=== PATIENT | female | born 1990 | race Caucasian/White ===

== ENCOUNTER 2017-09-24 17:13 | Emergency (ER) | payer BC, MEDICAID ==
[~2017-09-24] VITALS: Ht 170.2 cm; Wt 180.0 kg
[~2017-09-24 17:13] MED LIST: MEDR2.5T PO; ONDA8TAB9 PO
[2017-09-24] MEDS ORDERED: acetaminophen 325mg tablet PO ONE (18:15)
[2017-09-24] MEDS ORDERED: HYDROmorphone 1 mg/ml syringe IM ONE ×2 (18:15→20:05)
[2017-09-24] MEDS ORDERED: ketorolac trometh inj. 60 MG/2 ML VIAL IM ONE (18:15)
[2017-09-24] MEDS ORDERED: aspirin 325mg tablet PO ONE (18:15)
[2017-09-24] MEDS ORDERED: ondansetron 4mg rapidly disintigrating tab PO ONE (18:15)
[2017-09-24] MEDS ORDERED: CYCL-1 PO (20:43)
[2017-09-24] MEDS ORDERED: ASPI-1264 PO (20:43)
[2017-09-24] MEDS ORDERED: ACET-2119 PO (20:43)
[2017-09-24] MEDS ORDERED: HYDR-3965 PO (20:43)
[2017-09-24] MEDS ORDERED: IBUP-1986 PO (20:43)
[2017-09-24 20:55] VITALS: BP 118/63
== END 2017-09-24 20:56 | disposition home or self-care (01) ==
LOC: ER 17:13
DX: M54.5 Low back pain (principal); I10 Essential (primary) hypertension; E11.9 Type 2 diabetes mellitus without complications; G89.29 Other chronic pain; Z90.49 Acquired absence of other specified parts of digestive tract; Z79.899 Other long term (current) drug therapy; Z79.82 Long term (current) use of aspirin; X50.1XXA Overexertion from prolonged static or awkward postures, initial encounter; Y93.89 Activity, other specified; Y92.89 Other specified places as the place of occurrence of the external cause; Y99.9 Unspecified external cause status
CPT/HCPCS: 96372; 99284; J1170; J1885

== ENCOUNTER 2018-01-06 09:51 | Emergency (ER) | payer MEDICAID ==
[~2018-01-06] VITALS: Ht 170.2 cm; Wt 166.0 kg
[~2018-01-06 09:51] MED LIST changes: +ACET-2119 PO; +CYCL-1 PO; +IBUP-1986 PO
[2018-01-06 10:05] VITALS: BP 150/112
[2018-01-06] MEDS ORDERED: orphenadrine citrate 60mg/2ml inj. IM ONE (11:25)
[2018-01-06] MEDS ORDERED: ketorolac trometh. 30mg/ml inj. IM ONE (11:25)
[2018-01-06] MEDS ORDERED: CYCL-1 PO (11:32)
== END 2018-01-06 11:48 | disposition home or self-care (01) ==
LOC: ER 09:52
DX: S39.012A Strain of muscle, fascia and tendon of lower back, initial encounter (principal); G89.29 Other chronic pain; I10 Essential (primary) hypertension; E11.9 Type 2 diabetes mellitus without complications; Z90.49 Acquired absence of other specified parts of digestive tract; Z88.8 Allergy status to other drugs, medicaments and biological substances; Z79.899 Other long term (current) drug therapy
CPT/HCPCS: 96372; 99284; J1885; J2360

== ENCOUNTER 2018-07-20 09:49 | Emergency (ER) | payer MEDICAID ==
[~2018-07-20] VITALS: Ht 170.2 cm; Wt 160.0 kg
[2018-07-20 09:52] VITALS: BP 159/93
[2018-07-20 11:53] LABS: BASOPHILS # (AUTO) 0.1 X10'3 (0-0.2); EOSINOPHILS # (AUTO) 0.4 X10'3 (0-0.9); EOSINOPHILS % (AUTO) 2.9 % (0-6); HEMATOCRIT 30.1 % (35.0-45.0); HEMOGLOBIN 9.2 g/dl (12.0-16.0); LYMPHOCYTES # (AUTO) 4.2 X10'3 (1.1-4.8); LYMPHOCYTES % (AUTO) 29.6 % (21-51); MEAN CORPUSCULAR HEMOGLOBIN 19.8 PG (27.0-31.0); MEAN CORPUSCULAR HGB CONC 30.5 % (33.0-36.5); MEAN CORPUSCULAR VOLUME 64.9 FL (78-98); MEAN PLATELET VOLUME 8.8 FL (7.4-10.4); MONOCYTES # (AUTO) 0.3 X10'3 (0-0.9); MONOCYTES % (AUTO) 2.1 % (2-12); NEUTROPHILS # (AUTO) 9.2 X10'3 (1.8-7.7); NEUTROPHILS % (AUTO) 64.4 % (42-75); PLATELET COUNT 321 X10'3 (140-440); RED BLOOD COUNT 4.65 X10'6 (4.20-5.60); RED CELL DISTRIBUTION WIDTH 20.7 % (11.5-14.5); WHITE BLOOD COUNT 14.3 X10'3 (4.5-11.0)
[2018-07-20 12:04] LABS: ANISOCYTOSIS 3+; HYPOCHROMASIA 2+; MICROCYTOSIS 2+; PLATELET ESTIMATE NORMAL; POLYCHROMASIA 1+; TEAR DROP CELLS FEW
[2018-07-20 12:07] LABS: ALANINE AMINOTRANSFERASE 70 U/L (12-78); ALBUMIN 2.9 G/DL (3.4-5.0); ALBUMIN/GLOBULIN RATIO 0.6 (1.1-1.5); ALKALINE PHOSPHATASE 81 IU/L (46-116); ANION GAP 10 (8-16); ASPARTATE AMINO TRANSFERASE 70 U/L (10-37); BILIRUBIN,TOTAL 0.2 MG/DL (0.1-1.0); BLOOD UREA NITROGEN 9 MG/DL (7-18); CALCIUM 8.5 MG/DL (8.5-10.1); CHLORIDE 103 MMOL/L (99-107); CREATININE 0.69 MG/DL (0.40-0.90); GLUCOSE 204 MG/DL (70-104); POTASSIUM 3.7 MMOL/L (3.5-5.1); SODIUM 137 MMOL/L (135-145); TOTAL CARBON DIOXIDE 23.6 MMOL/L (24-32); TOTAL PROTEIN 7.9 G/DL (6.4-8.2); eGFR > 90 ML/MIN
[2018-07-20 12:19] LABS: URINE HCG NEGATIVE (NEG)
[2018-07-20 12:22] LABS: CLARITY,URINE CLOUDY (Clear); GLUCOSE, URINE NEGATIVE (Neg); KETONES,URINE NEGATIVE (Neg); LEUKOCYTE ESTERASE ,URINE NEGATIVE (Neg); NITRITES, URINE NEGATIVE (Neg); OCCULT BLOOD,URINE LARGE (Neg); PH,URINE 6.5 (4.8-8.0); PROTEIN,URINE 30 mg/dl (Neg); UROBILINOGEN,URINE 0.2 E.U/dL (0.2-1.0)
[2018-07-20 12:24] LABS: UA COLLECTION TYPE CLN CATCH MIDSTREAM
[2018-07-20 12:25] LABS: COLOR,URINE DARK YELLOW (Yellow)
[2018-07-20 12:27] LABS: BACTERIA,URINE FEW /HPF (Neg); MUCUS STRANDS NONE SEEN /LPF (Neg); RBC,URINE TNTC /HPF (0-2); SQUAMOUS EPITHELIAL CELL,UR FEW /LPF (FEW); WBC,URINE 0-4 /HPF (0-4)
[2018-07-20] MEDS ORDERED: NORE1TAB6 PO (13:28)
== END 2018-07-20 13:43 | disposition home or self-care (01) ==
LOC: ER 09:49
DX: N93.8 Other specified abnormal uterine and vaginal bleeding (principal); D64.9 Anemia, unspecified; Z90.49 Acquired absence of other specified parts of digestive tract; Z79.899 Other long term (current) drug therapy; Z88.8 Allergy status to other drugs, medicaments and biological substances
CPT/HCPCS: 36415; 80053; 81001; 81025; 85025; 99284

== ENCOUNTER 2018-07-26 08:29 | Emergency (ER) | payer MEDICAID ==
[~2018-07-26] VITALS: Ht 170.2 cm; Wt 181.0 kg
[~2018-07-26 08:29] MED LIST changes: +NORE1TAB6 PO
[2018-07-26 08:39] VITALS: BP 155/99
[2018-07-26] MEDS ORDERED: CYCL-1 PO (08:59)
[2018-07-26] MEDS ORDERED: ketorolac tromethamine 15mg/ml inj. IM ONE (09:00)
== END 2018-07-26 09:33 | disposition home or self-care (01) ==
LOC: ER 08:29
DX: S39.012A Strain of muscle, fascia and tendon of lower back, initial encounter (principal); R11.0 Nausea; E66.9 Obesity, unspecified; Z88.8 Allergy status to other drugs, medicaments and biological substances; Z79.899 Other long term (current) drug therapy; Z90.49 Acquired absence of other specified parts of digestive tract; X58.XXXA Exposure to other specified factors, initial encounter; Y93.89 Activity, other specified; Y92.89 Other specified places as the place of occurrence of the external cause; Y99.8 Other external cause status
CPT/HCPCS: 96372; 99283; J1885

== ENCOUNTER 2018-11-16 07:28 | Day surgery (SDC) | payer MEDICAID ==
[2018-11-14 11:39] LABS: BASOPHILS # (AUTO) 0.1 X10'3 (0-0.2); BASOPHILS % (AUTO) 0.7 % (0-1); EOSINOPHILS # (AUTO) 0.4 X10'3 (0-0.9); EOSINOPHILS % (AUTO) 3.1 % (0-6); LYMPHOCYTES # (AUTO) 3.9 X10'3 (1.1-4.8); LYMPHOCYTES % (AUTO) 29.8 % (21-51); MEAN CORPUSCULAR HEMOGLOBIN 22.4 PG (27.0-31.0); MEAN CORPUSCULAR HGB CONC 31.9 g/dL (33.0-36.5); MEAN CORPUSCULAR VOLUME 70.1 FL (78-98); MEAN PLATELET VOLUME 8.2 FL (7.4-10.4); MONOCYTES # (AUTO) 0.7 X10'3 (0-0.9); MONOCYTES % (AUTO) 5.1 % (2-12); NEUTROPHILS % (AUTO) 61.3 % (42-75); PRE OP HEMATOCRIT 36.6 % (35.0-45.0); PRE OP HEMOGLOBIN 11.7 g/dL (12.0-16.0); PRE OP PLATELET COUNT 376 X10'3 (140-440); RED BLOOD COUNT 5.22 X10'6 (4.20-5.60); RED CELL DISTRIBUTION WIDTH 22.2 % (11.5-14.5)
[2018-11-14 11:50] LABS: HCG SERUM QL NEGATIVE
[2018-11-14 11:55] LABS: ALBUMIN 3.3 G/DL (3.4-5.0); ALBUMIN/GLOBULIN RATIO 0.6 (1.1-1.5); ALKALINE PHOSPHATASE 87 IU/L (46-116); BLOOD UREA NITROGEN 12 MG/DL (7-18); BUN/CREATININE RATIO 17.4 (6.6-38.0); CHLORIDE 102 MMOL/L (99-107); CREATININE 0.69 MG/DL (0.40-0.90); PRE OP ALT 58 U/L (30-65); PRE OP ANION GAP 10 (8-16); PRE OP AST 57 U/L (10-37); PRE OP BILIRUB, TOTAL 0.2 MG/DL (0.0-1.0); PRE OP GLUCOSE 124 MG/DL (70-104); PRE OP POTASSIUM 3.5 MMOL/L (3.4-5.1); PRE OP SODIUM 135 MMOL/L (135-145); TOTAL CARBON DIOXIDE 23.2 MMOL/L (24-32); TOTAL PROTEIN 8.5 G/DL (6.4-8.2); eGFR > 90 ML/MIN
[2018-11-14 13:05] LABS: ANISOCYTOSIS 3+; MICROCYTOSIS 1+; PLATELET ESTIMATE NORMAL
[2018-11-14 13:06] LABS: HYPOCHROMASIA 1+
[2018-11-16] VITALS (8 sets, daily range): BP systolic 114–150; BP diastolic 60–103
[~2018-11-16] VITALS: Ht 170.2 cm; Wt 182.9 kg
[~2018-11-16 07:28] MED LIST changes: -ACET-2119 PO; -CYCL-1 PO; +FERR-116 PO; -IBUP-1986 PO; +MEDR10TA10 PO; -MEDR2.5T PO; +METF500T PO; -NORE1TAB6 PO; +OMEP20TA23 PO; -ONDA8TAB9 PO; +VENL-191 PO; +famotidine 20mg tablet PO ONE; +ringers solution, lacted 1,000 ML IV SCH
[2018-11-16] MEDS ORDERED: ketorolac trometh. 30mg/ml inj. IV ONE (10:00)
[2018-11-16] MEDS ORDERED: ondansetron/PF 4mg/2ml inj IV PRN (10:00)
[2018-11-16] MEDS ORDERED: meperidine/PF 25mg/ml syringe IV PRN ×3 (10:00)
[2018-11-16] MEDS ORDERED: ringers solution, lacted 1,000 ML IV SCH (10:00)
[2018-11-16] MEDS ORDERED: proCHLORperazine 10 MG/2 ml inj IV PRN (10:00)
[2018-11-16] MEDS ORDERED: morphine 4 MG/ML inj SYRINge IV PRN ×2 (10:00)
[2018-11-16] MEDS ORDERED: sevoflurane 250ml liquid IH ONE (10:01)
[2018-11-16] MEDS ORDERED: fentaNYL/PF 50MCG/1 ML 2ML syringe ONE (10:02)
[2018-11-16] MEDS ORDERED: propofol inj 20 ML IV ONE (10:03)
[2018-11-16] MEDS ORDERED: midazolam 2 mg/2 ml injection ONE (10:03)
[2018-11-16] MEDS ORDERED: succinylcholine 20mg/ml inj IV ONE (10:48)
--- NOTE | 2018-11-16 10:57 | NUR ---
Received from OR via [facility] , accompanied by Anesthesiologist RICHAR and report given by Anesthesiolgist. PATIENT WITH 20G PIV IN LEFT UE RUNNING LR AT 100. DENIES PAIN AT THIS TIME. 10L MASK ON WITH 100% SATURATIONS. ONE CARMELITA PAD IN PLACE. VSS Addendum: 11/16/18 at 1113 by Donnell Hooks RN, RN Amended: Links added.
[2018-11-16] MEDS ORDERED: oxyCODONE/APAP 5-325mg tablet PO ONE (11:00)
--- NOTE | 2018-11-16 12:07 | NUR ---
ALL DC CRITERIA HAS BEEN MET. IV TAKEN OUT WITHOUT COMPLICATIONS. PAIN AT 2-10. VOIDED AND PATIENT AMBULATED TO WHEELCHAIR. ALL DC INSTRUCTIONS COVERED. ALL QUESTIONS ANSWERED. PATIENT SECURED IN FRONT PASSENGER SEAT OF PERSONAL VEHICLE WHERE PATIENT DRIVEN HOME. Addendum: 11/16/18 at 1226 by Donnell Hooks RN, RN Amended: Links added.
== END 2018-11-16 12:07 | disposition home or self-care (01) ==
LOC: PAS 07:28
PROVIDERS: ATTEND Obstetrics & Gynecology
DX: N92.1 Excessive and frequent menstruation with irregular cycle (principal); E11.9 Type 2 diabetes mellitus without complications; E66.01 Morbid (severe) obesity due to excess calories; D53.9 Nutritional anemia, unspecified; E56.9 Vitamin deficiency, unspecified; Z88.8 Allergy status to other drugs, medicaments and biological substances; Z90.49 Acquired absence of other specified parts of digestive tract; Z87.891 Personal history of nicotine dependence; I10 Essential (primary) hypertension
CPT/HCPCS: 36415; 58563; 80053; 82948; 84703; 85025; 86885; 86900; 86901; 93005; A6255; J0330; J1885; J2175; J2250; J2704; J3010; J7030; A4355; J7120

== ENCOUNTER 2018-12-24 20:37 | Emergency (ER) | payer OTHER, MEDICAID ==
[~2018-12-24] VITALS: Ht 170.2 cm; Wt 184.6 kg
[~2018-12-24 20:37] MED LIST changes: -famotidine 20mg tablet PO ONE; -ringers solution, lacted 1,000 ML IV SCH
[2018-12-24 21:19] LABS: BASOPHILS # (AUTO) 0.1 X10'3 (0-0.2); BASOPHILS % (AUTO) 0.9 % (0-1); EOSINOPHILS # (AUTO) 0.5 X10'3 (0-0.9); EOSINOPHILS % (AUTO) 4.8 % (0-6); HEMATOCRIT 38.2 % (35.0-45.0); HEMOGLOBIN 11.8 g/dl (12.0-16.0); LYMPHOCYTES # (AUTO) 2.9 X10'3 (1.1-4.8); LYMPHOCYTES % (AUTO) 29.7 % (21-51); MEAN CORPUSCULAR HEMOGLOBIN 23.3 PG (27.0-31.0); MEAN CORPUSCULAR HGB CONC 30.9 g/dL (33.0-36.5); MEAN CORPUSCULAR VOLUME 75.2 FL (78-98); MEAN PLATELET VOLUME 8.4 FL (7.4-10.4); MONOCYTES # (AUTO) 0.5 X10'3 (0-0.9); MONOCYTES % (AUTO) 5.6 % (2-12); NEUTROPHILS # (AUTO) 5.7 X10'3 (1.8-7.7); PLATELET COUNT 342 X10'3 (140-440); RED BLOOD COUNT 5.08 X10'6 (4.20-5.60); RED CELL DISTRIBUTION WIDTH 17.3 % (11.5-14.5); WHITE BLOOD COUNT 9.7 X10'3 (4.5-11.0)
[2018-12-24 21:39] LABS: ALANINE AMINOTRANSFERASE 96 U/L (12-78); ALBUMIN 3.1 G/DL (3.4-5.0); ALBUMIN/GLOBULIN RATIO 0.6 (1.1-1.5); ALKALINE PHOSPHATASE 107 IU/L (46-116); ANION GAP 10 (8-16); ASPARTATE AMINO TRANSFERASE 67 U/L (10-37); BILIRUBIN,TOTAL 0.2 MG/DL (0.1-1.0); BLOOD UREA NITROGEN 8 MG/DL (7-18); BUN/CREATININE RATIO 9.9 (6.6-38.0); CALCIUM 8.8 MG/DL (8.5-10.1); CHLORIDE 102 MMOL/L (99-107); CREATININE 0.81 MG/DL (0.40-0.90); GLUCOSE 237 MG/DL (70-104); SODIUM 136 MMOL/L (135-145); TOTAL CARBON DIOXIDE 23.7 MMOL/L (24-32); TOTAL PROTEIN 8.2 G/DL (6.4-8.2); eGFR 84 ML/MIN
[2018-12-24 22:04] LABS: PARTIAL THROMBOPLASTIN TIME 27 SECONDS (22-32); PROTHROMBIN TIME 9.9 SECONDS (9.0-12.0)
[2018-12-24] MEDS ORDERED: normal saline 1000ML IV soln IVB ONE ×2 (22:30→22:50)
[2018-12-24 22:40] VITALS: BP 154/119
[2018-12-24 22:50] LABS: CLARITY,URINE CLEAR (Clear); COLOR,URINE YELLOW (Yellow); GLUCOSE, URINE NEGATIVE (Neg); KETONES,URINE TRACE mg/dl (Neg); LEUKOCYTE ESTERASE ,URINE NEGATIVE (Neg); NITRITES, URINE NEGATIVE (Neg); OCCULT BLOOD,URINE NEGATIVE (Neg); PROTEIN,URINE NEGATIVE (Neg); UA COLLECTION TYPE CLN CATCH MIDSTREAM; UROBILINOGEN,URINE 0.2 E.U/dL (0.2-1.0)
[2018-12-24] MEDS ORDERED: levoFLOXACIN 750MG TABLET PO ONE (23:05)
[2018-12-24] MEDS ORDERED: LEVO750T21 PO (23:06)
[2018-12-24] MEDS ORDERED: BENZ-16 PO (23:06)
== END 2018-12-24 23:54 | disposition home or self-care (01) ==
LOC: ER 20:38
DX: J20.9 Acute bronchitis, unspecified (principal); I10 Essential (primary) hypertension; E11.9 Type 2 diabetes mellitus without complications; Z90.49 Acquired absence of other specified parts of digestive tract; Z88.8 Allergy status to other drugs, medicaments and biological substances; Z79.899 Other long term (current) drug therapy
CPT/HCPCS: 36415; 71045; 80053; 81003; 83605; 84145; 85025; 85610; 85730; 87040; 93005; 99284

== ENCOUNTER 2020-07-21 19:56 | Emergency (ER) | payer MEDICAID ==
[~2020-07-21] VITALS: Ht 170.2 cm; Wt 180.0 kg
[2020-07-21] MEDS ORDERED: piperacillin/tazo 4.5gm/100ml 100 ML IV ONE (21:20)
[2020-07-21 21:24] LABS: BASOPHILS # (AUTO) 0.1 X10'3 (0-0.2); BASOPHILS % (AUTO) 0.6 % (0-1); EOSINOPHILS # (AUTO) 0.4 X10'3 (0-0.9); EOSINOPHILS % (AUTO) 3.1 % (0-6); HEMATOCRIT 37.4 % (35.0-45.0); LYMPHOCYTES # (AUTO) 3.1 X10'3 (1.1-4.8); LYMPHOCYTES % (AUTO) 24.6 % (21-51); MEAN CORPUSCULAR HEMOGLOBIN 26.3 PG (27.0-31.0); MEAN CORPUSCULAR HGB CONC 32.2 g/dL (33.0-36.5); MEAN CORPUSCULAR VOLUME 81.8 FL (78-98); MEAN PLATELET VOLUME 8.1 FL (7.4-10.4); MONOCYTES # (AUTO) 0.9 X10'3 (0-0.9); MONOCYTES % (AUTO) 7.3 % (2-12); NEUTROPHILS % (AUTO) 64.4 % (42-75); PLATELET COUNT 321 X10'3 (140-440); RED BLOOD COUNT 4.57 X10'6 (4.20-5.60); RED CELL DISTRIBUTION WIDTH 14.5 % (11.5-14.5); WHITE BLOOD COUNT 12.4 X10'3 (4.5-11.0)
[2020-07-21] MEDS ORDERED: iohexol 300mg/ml 100ml inj. ONE (21:27)
[2020-07-21 21:38] LABS: ALANINE AMINOTRANSFERASE 62 U/L (12-78); ALBUMIN 3.2 G/DL (3.4-5.0); ALBUMIN/GLOBULIN RATIO 0.6 (1.1-1.5); ALKALINE PHOSPHATASE 105 IU/L (46-116); ANION GAP 8 (8-16); ASPARTATE AMINO TRANSFERASE 45 U/L (10-37); BILIRUBIN,TOTAL 0.2 MG/DL (0.1-1.0); BLOOD UREA NITROGEN 14 MG/DL (7-18); BUN/CREATININE RATIO 16.9 (6.6-38.0); CHLORIDE 102 MMOL/L (99-107); CREATININE 0.83 MG/DL (0.40-0.90); GLUCOSE 198 MG/DL (70-104); SODIUM 135 MMOL/L (135-145); TOTAL CARBON DIOXIDE 25.4 MMOL/L (24-32); TOTAL PROTEIN 8.2 G/DL (6.4-8.2); eGFR 81 ML/MIN
[2020-07-21 21:59] LABS: CLARITY,URINE CLEAR (Clear); COLOR,URINE YELLOW (Yellow); GLUCOSE, URINE NEGATIVE (Neg); KETONES,URINE NEGATIVE (Neg); LEUKOCYTE ESTERASE ,URINE NEGATIVE (Neg); NITRITES, URINE NEGATIVE (Neg); OCCULT BLOOD,URINE NEGATIVE (Neg); PH,URINE 5.5 (4.8-8.0); PROTEIN,URINE TRACE mg/dl (Neg)
[2020-07-21 22:00] LABS: UA COLLECTION TYPE CLN CATCH MIDSTREAM
[2020-07-21 22:04] LABS: BACTERIA,URINE 2+ /HPF (Neg); RBC,URINE NONE SEEN /HPF (0-2); SQUAMOUS EPITHELIAL CELL,UR MANY /LPF (FEW); WBC,URINE 0-4 /HPF (0-4)
[2020-07-21] MEDS ORDERED: acetaminophen 325mg tablet PO ONE (22:05)
[2020-07-21] MEDS ORDERED: ketorolac tromethamine 15mg/ml inj. IV ONE (22:25)
[2020-07-21] MEDS ORDERED: clindamycin 150mg capsule PO ONE (22:55)
[2020-07-21] MEDS ORDERED: Cipro HC otic suspension 10ML bottle RIGHT EAR ONE (22:55)
[2020-07-21] MEDS ORDERED: dexamethasone sod phosphate 10mg/ml inj IV STA (23:11)
[2020-07-21] MEDS ORDERED: CLIN-97 PO (23:50)
[2020-07-21] MEDS ORDERED: HYDR-4383 PO (23:50)
[2020-07-22 00:06] VITALS: BP 131/72
== END 2020-07-22 00:07 | disposition home or self-care (01) ==
LOC: ER 19:56
DX: H70.91 Unspecified mastoiditis, right ear (principal); H60.91 Unspecified otitis externa, right ear; I10 Essential (primary) hypertension; E11.9 Type 2 diabetes mellitus without complications; G89.29 Other chronic pain; Z90.49 Acquired absence of other specified parts of digestive tract; Z88.8 Allergy status to other drugs, medicaments and biological substances; Z79.899 Other long term (current) drug therapy
CPT/HCPCS: 36415; 70482; 80053; 81001; 83605; 84145; 85025; 87040; 96365; 96375; 99285; J1100; J1885; J2543; Q9967

== ENCOUNTER 2023-10-28 21:44 | Emergency (ER) | payer MEDICAID ==
[~2023-10-28 21:44] MED LIST changes: +CLIN-97 PO; +HYDR-4383 PO
== END 2023-10-28 22:54 | disposition left against medical advice (07) ==
LOC: ER 21:45
DX: R05.9 Cough, unspecified (principal); Z53.21 Procedure and treatment not carried out due to patient leaving prior to being seen by health care provider